=== PATIENT | female | born 1975 | race Caucasian/White ===

== ENCOUNTER 2019-04-24 15:32 | Emergency (ER) | payer SELFPAY ==
--- NOTE | 2019-04-24 15:42 | Emergency Department Record ---
History of Present Illness - General Chief Complaint: Back Pain/Injury Stated Complaint: BACK PAIN/WORK Time Seen by Provider: 04/24/19 15:37 Source: Patient Mode of Arrival: Ambulatory Limitations: No limitations - History of Present Illness Initial Comments: 43 yo female presents with low back pain after awkwardly lifting parts at work. She states that she was twisting while lifting. The pain is midline and lower. No prior serious back issues. She does occasionally see a chiropractor. No back surgery history. No weakness, numbness, tingling or leg radiation. No changes in bowel or bladder changes. No recent illness or fever. MD Complaint: Back pain -: Days(s) (4) Place: Work Radiation: None Severity: Moderate Quality: Aching, Sharp Consistency: Constant Improves With: Immobilization Worsens With: Movement, Walking Context: Bending, Turning/twisting, While lifting Associated Symptoms: Denies other symptoms - Related Data Home Medications Medication Instructions Recorded Confirmed Last Taken Venlafaxine HCl [Effexor Xr] 225 mg PO DAILY 04/24/19 04/24/19 1 Day Ago ~04/23/19 Previous Rx's Medication Instructions Recorded Cyclobenzaprine HCl [Flexeril] 10 mg PO TID #20 tablet 04/24/19 Naproxen [Naprosyn] 500 mg PO Q12H #20 tab 04/24/19 Allergies Allergy/AdvReac Type Severity Reaction Status Date / Time quinine Allergy NEUROTOXICI Verified 04/24/19 15:40 TY Review of Systems Constitutional: Denies: Chills, Fever, Malaise, Weakness Eyes: Denies: Eye discharge ENT: Denies: Congestion, Throat pain Respiratory: Denies: Cough, Dyspnea Cardiovascular: Denies: Chest pain, Syncope Endocrine: Denies: Fatigue Gastrointestinal: Denies: Abdominal pain, Diarrhea, Nausea, Vomiting Genitourinary: Denies: Dysuria, Urgency Musculoskeletal: Reports: Back pain, Myalgia. Denies: Arthralgia, Joint swelling, Neck pain Skin: Denies: Bruising, Change in color, Rash Neurological: Denies: Headache Psychiatric: Denies: Anxiety Hematological/Lymphatic: Denies: Easy bleeding, Easy bruising Physical Exam - General General Appearance: Alert, Oriented x3, Cooperative, No acute distress Limitations: No limitations - Head Head exam: Atraumatic, Normal inspection - Eye Eye exam: Normal appearance, PERRL. negative: Conjunctival injection, Scleral icterus - ENT ENT exam: Normal exam, Mucous membranes moist Ear exam: Normal external inspection Nasal Exam: Normal inspection Mouth exam: Normal external inspection - Neck Neck exam: Normal inspection - Respiratory Respiratory exam: Normal lung sounds bilaterally. negative: Respiratory distress, Rhonchi, Stridor, Wheezes - Cardiovascular Cardiovascular Exam: Regular rate, Normal rhythm, Normal heart sounds - GI/Abdominal GI/Abdominal exam: Soft. negative: Tenderness - Rectal Rectal exam: Deferred - exam: Deferred - Extremities Extremities exam: Normal inspection. negative: Calf tenderness, Tenderness - Back Back exam: Reports: Muscle spasm, Paraspinal tenderness, Tenderness, Vertebral tenderness. Denies: CVA tenderness (R), CVA tenderness (L) Image of Body Front/Back: 1 - tender lower lumbar, normal inspection, no swelling - Neurological Neurological exam: Alert, Normal gait, Oriented X3, Reflexes normal (+2 bilateral patellar, no foot drop). negative: Abnormal gait, Altered, Motor sensory deficit - Psychiatric Psychiatric exam: Normal affect, Normal mood. negative: Agitated, Anxious - Skin Skin exam: Dry, Intact, Normal color, Warm Course - Reevaluation(s) Reevaluation #1: 04/24/19 16:28 The XR demonstrates mild degenerative changes She will be kept off work tomorrow We discussed rest, home care and reasons to return to the ED Disposition Disposition: Discharge Clinical Impression: Lumbar spine strain Qualifiers: Encounter type: initial encounter Qualified Code(s): S39.012A - Strain of musc le, fascia and tendon of lower back, initial encounter Disposition: Home, Self-Care Condition: (1) Good Instructions: Low Back Strain (ED) Additional Instructions: Off work the next two days Rest and avoid lifting Take the prescriptions as directed Return or be seen in the next 2-3 days if the pain is not controlled Call your doctor for a recheck in the next one week Prescriptions: Cyclobenzaprine HCl [Flexeril] 10 mg PO TID #20 tablet Naproxen [Naprosyn] 500 mg PO Q12H #20 tab.dr Forms: Patient Portal Access Quality - Quality Measures Quality Measures: N/A - Blood Pressure Screening Does Patient Have Any of the Following: No Blood Pressure Classification: Hypertensive Reading Systolic Measurement: 139 Diastolic Measurement: 95 Screening for High Blood Pressure: < Pre-Hypertensive BP, F/U Documented > [[id number]] Pre-Hypertensive Follow-up Interventions: Referral to alternative/primary care provider.
[2019-04-24] MEDS: KETOROLAC 30 MG/ML VIAL IM ONE (15:45)
[2019-04-24] MEDS: ORPHENADRINE CITRATE 60MG/2ML VIAL IM ONE (15:45)
--- NOTE | 2019-04-24 16:19 | RADIOLOGY REPORT ---
EXAMINATION: Lumbar Spine Complete Views EXAM DATE: 04/24/2019 4:10 PM INDICATION: low back injury ENCOUNTER: Not applicable FINDINGS: Mild degenerative disc disease. No acute abnormality. Dictated by: Simeon Irizarry MD on 04/24/2019 4:15 PM. .
[2019-04-24] MEDS: HYDROCODONE/APAP 5/325MG TABLET PO ONE (16:35)
== END 2019-04-24 16:38 | disposition home or self-care (01) ==
LOC: ER 15:32
DX: S39.012A Strain of muscle, fascia and tendon of lower back, initial encounter (principal); X50.3XXA Overexertion from repetitive movements, initial encounter; Y93.63 Activity, rugby; Y99.0 Civilian activity done for income or pay
CPT/HCPCS: 72110; 96372; 99284; J1885; J2360